=== PATIENT | female | born 1955 | race Caucasian/White ===

== ENCOUNTER → 2016-04-16 | Day surgery (SDC) | payer BC ==
[~2016-04-16] MED LIST: ESTR0.5T9 PO; LACTATED RINGER'S 1000 ML INJ 1,000 ML ONE; METO25 PO; OMEP20CA5 PO; ONABOTULINUMTOXINA INJ 100 UNITS/VIAL ONE; PROPOFOL 500 MG/50 ML BTL IV ONE; SODIUM CHLORIDE 0.9% INJ 10 ML ONE
== END | disposition home or self-care (01) ==
LOC: ESDC 11:44
PROVIDERS: ATTEND Internal Medicine Gastroenterology
DX: K21.9 Gastro-esophageal reflux disease without esophagitis (principal); R11.0 Nausea; K29.70 Gastritis, unspecified, without bleeding; K31.84 Gastroparesis
CPT/HCPCS: 00740; 43236; 43239; 88305; 88312; J0585; J3010; J7120